=== PATIENT | male | born 1950 | race Caucasian/White ===

== ENCOUNTER 2023-02-08 04:41 | Emergency (ER) | payer MEDICARE, BC ==
[~2023-02-08] VITALS: Ht 188 cm; Wt 114.0 kg
[2023-02-08] VITALS (17 sets, daily range): BP systolic 131–161; BP diastolic 62–86
[2023-02-08 05:51] LABS: BASO% 0.2 % (0-3); EOS% 1.2 % (0-8); HEMATOCRIT 40.5 % (39.0-50.0); HEMOGLOBIN 13.2 g/dl (14.0-18.0); IMMATURE GRANULOCYTES 0.5 % (0.0-5.0); LYMPH% 15.2 % (15-41); MEAN CORPUSCULAR HGB 28.7 pG CALC (26.0-32.0); MEAN CORPUSCULAR HGB CONC 32.6 g/dL CAL (32.0-36.0); MONO% 11.8 % (2-13); NEUT# 12.17 thou/uL (1.82-7.42); NEUT% 71.1 % (42-76); RED BLOOD COUNT 4.6 mill/uL (4.70-6.10); RED CELL DISTRI WIDTH 14.4 % (11.5-15.5)
[2023-02-08 06:06] LABS: ALBUMIN 3.9 g/dL (3.2-5.0); ALKALINE PHOSPHATASE 59 u/l (38-126); ANION GAP 11 (6-22 (CALC)); BILIRUBIN, TOTAL 0.8 mg/dL (0.2-1.3); BUN 11 mg/dL (8-23); BUN/CREATININE RATIO 13 (12-20 (CALC)); CARBON DIOXIDE 29 mmol/l (22-30); CHLORIDE 103 mmol/l (95-108); CREATININE 0.8 mg/dL (0.7-1.3); GFR FOR AFR.AMER. > 60 ML/MIN (>=60 (CALC)); GFR OTHER RACES > 60 ML/MIN (>=60 (CALC)); POTASSIUM 3.4 mmol/l (3.5-5.1); SGOT/AST 37 u/l (19-48); SODIUM 140 mmol/l (137-146)
[2023-02-08 07:57] LABS: URINE BILIRUBIN - DIPSTICK NEGATIVE (NEGATIVE); URINE BLOOD DIPSTICK NEGATIVE (NEGATIVE); URINE COLOR YELLOW; URINE GLUCOSE - DIPSTICK NEGATIVE (NEGATIVE); URINE KETONE NEGATIVE (NEGATIVE); URINE LEUK ESTERASE NEGATIVE (NEGATIVE); URINE PROTEIN - DIPSTICK NEGATIVE (NEG-TRACE); URINE SPECIFIC GRAVITY 1.025; URINE UROBILINOGEN - DIPSTICK 0.2 E.U./dL (0.2)
[2023-02-08 07:58] LABS: URINE NITRITE - DIPSTICK NEGATIVE (Negative)
== END 2023-02-08 09:42 | disposition home or self-care (01) ==
LOC: ED 04:41
PROVIDERS: Emergency Medicine; Family Medicine
DX: M54.50 Low back pain, unspecified (principal); I10 Essential (primary) hypertension; Z98.890 Other specified postprocedural states

== ENCOUNTER 2023-07-05 12:09 | Emergency (ER) | payer MEDICARE, BC ==
[~2023-07-05] VITALS: Ht 188 cm; Wt 113.0 kg
[2023-07-05 15:54] LABS: URINE BILIRUBIN - DIPSTICK Negative (NEGATIVE); URINE BLOOD DIPSTICK Negative (NEGATIVE); URINE COLOR Yellow; URINE GLUCOSE - DIPSTICK Negative (NEGATIVE); URINE KETONE Negative (NEGATIVE); URINE LEUK ESTERASE Negative (NEGATIVE); URINE NITRITE - DIPSTICK Negative (Negative); URINE PH 5.5 (4.5-8.0); URINE PROTEIN - DIPSTICK Negative (NEG-TRACE); URINE SPECIFIC GRAVITY >=1.030; URINE UROBILINOGEN - DIPSTICK 0.2 E.U./dL (0.2)
[2023-07-05 16:00] LABS: BASO% 0.7 % (0-3); EOS% 5.4 % (0-8); IMMATURE GRANULOCYTES 0.2 % (0.0-5.0); LYMPH% 40.2 % (15-41); MEAN CELL VOLUME 90.6 fL CALC (80.0-100.0); MEAN CORPUSCULAR HGB 29.1 pG CALC (26.0-32.0); MEAN CORPUSCULAR HGB CONC 32.1 g/dL CAL (32.0-36.0); MONO% 12.4 % (2-13); NEUT# 4.06 thou/uL (1.82-7.42); NEUT% 41.1 % (42-76); RED BLOOD COUNT 5.22 mill/uL (4.70-6.10); RED CELL DISTRI WIDTH 13.5 % (11.5-15.5)
[2023-07-05 16:01] LABS: HEMATOCRIT 47.3 % (39.0-50.0); HEMOGLOBIN 15.2 g/dl (14.0-18.0)
[2023-07-05 16:03] LABS: ALBUMIN 4.3 g/dL (3.2-5.0); ALKALINE PHOSPHATASE 65 u/l (38-126); AMYLASE 78 u/l (30-110); ANION GAP 10 (6-22 (CALC)); BILIRUBIN, TOTAL 0.7 mg/dL (0.2-1.3); BUN 18 mg/dL (8-23); BUN/CREATININE RATIO 18 (12-20 (CALC)); CARBON DIOXIDE 28 mmol/l (22-30); CHLORIDE 105 mmol/l (95-108); GFR FOR AFR.AMER. > 60 ML/MIN (>=60 (CALC)); GFR OTHER RACES > 60 ML/MIN (>=60 (CALC)); LIPASE 117 u/l (23-300); SGOT/AST 32 u/l (19-48); SODIUM 139 mmol/l (137-146); TOTAL PROTEIN 7.7 g/dL (6.3-8.2)
[2023-07-05 16:12] LABS: POTASSIUM 4.3 mmol/l (3.5-5.1)
[2023-07-05 18:11] VITALS: BP 137/85
[2023-07-05] MEDS ORDERED: CIPROFLOXACN500 MG PO (18:22)
[2023-07-05] MEDS ORDERED: PROBIOTIC250 MG PO (18:23)
== END 2023-07-05 18:24 | disposition home or self-care (01) ==
LOC: ED 12:09
PROVIDERS: Family Medicine
DX: K57.30 Diverticulosis of large intestine without perforation or abscess without bleeding (principal); I10 Essential (primary) hypertension